=== PATIENT | male | born 1980 | race Hispanic/Latino ===

== ENCOUNTER → 2024-02-03 11:32 | Outpatient (REF) | payer OTHER, SELFPAY ==
[2024-02-03 12:29] LABS: ALT (SGPT) 122 U/L (0-50); AST (SGOT) 65 U/L (17-59); Albumin 4.2 g/dl (3.5-5.0); Alkaline Phosphatase 99 U/L (38-126); Direct Bilirubin 0.1 mg/dl (0.0-0.4); Total Bilirubin 0.7 mg/dl (0.2-1.3)
== END ==
LOC: REG 11:32
PROVIDERS: ATTENDING PHYSICIAN Podiatrist Foot & Ankle Surgery
DX: B35.1 Tinea unguium (principal)
CPT/HCPCS: 36415; 80076

== ENCOUNTER → 2024-04-23 07:58 | Outpatient (REF) | payer OTHER, SELFPAY ==
[2024-04-23 09:57] LABS: Hematocrit 39.7 % (39.0-52.0); Hemoglobin 13.5 g/dL (13.0-18.0); Mean Corpuscular Hgb 28.7 pg (27.0-31.0); Mean Corpuscular Volume 84.3 fL (80.0-94.0); Mean Platelet Volume 10.9 fL (7.4-10.4); Platelet Count 200 10^3/uL (130-400); Red Blood Cell Count 4.71 10^6/uL (4.70-6.10); Red Cell Dist. Width 12.9 % (11.5-14.5); White Blood Cell Count 5.8 10^3/uL (4.8-10.8)
[2024-04-23 10:33] LABS: ALT (SGPT) 163 U/L (0-50); AST (SGOT) 83 U/L (17-59); Albumin 4.5 g/dl (3.5-5.0); Alkaline Phosphatase 82 U/L (38-126); Blood Urea Nitrogen 19 mg/dl (9-20); Calcium 9.4 mg/dl (8.4-10.2); Carbon Dioxide 25 mmol/L (22-30); Chloride 108 mmol/L (98-107); Glucose 117 mg/dl (70-99); HDL Cholesterol 41 mg/dl; LDL Cholesterol, Calculated 103 mg/dl; Sodium 144 mmol/L (135-145); Total Bilirubin 0.7 mg/dl (0.2-1.3); Total Cholesterol 167 mg/dl (50-199); Total Protein 7.2 g/dl (6.3-8.2); Triglyceride 117 mg/dl (10-149); Uric Acid 5.8 mg/dl (3.5-8.5); Very Low Density Lipoprotein 23 mg/dl (0-30); eGFR > 60.00
[2024-04-23 11:06] LABS: TSH Reflex To Free T4 1.36 uIU/ml (0.47-4.68)
[2024-04-23 12:11] LABS: Glycohemoglobin (HgbA1c) 6.2 % (4.0-5.6)
== END ==
LOC: CLINIC 07:58
PROVIDERS: ATTENDING PHYSICIAN Nurse Practitioner Adult Health
DX: Z00.00 Encounter for general adult medical examination without abnormal findings (principal); M1A.9XX0 Chronic gout, unspecified, without tophus (tophi); R73.03 Prediabetes
CPT/HCPCS: 36415; 80053; 80061; 83036; 84443; 84550; 85027

== ENCOUNTER → 2024-07-22 08:31 | Outpatient (REF) | payer OTHER, SELFPAY ==
[2024-07-22 10:05] LABS: ALT (SGPT) 94 U/L (0-50); AST (SGOT) 56 U/L (17-59); Albumin 4.4 g/dl (3.5-5.0); Alkaline Phosphatase 80 U/L (38-126); Blood Urea Nitrogen 15 mg/dl (9-20); Calcium 9.8 mg/dl (8.4-10.2); Carbon Dioxide 25 mmol/L (22-30); Chloride 107 mmol/L (98-107); Glucose 113 mg/dl (70-99); Potassium 4.3 mmol/L (3.5-5.1); Sodium 142 mmol/L (135-145); Total Bilirubin 1.1 mg/dl (0.2-1.3); Total Protein 6.9 g/dl (6.3-8.2); Uric Acid 6.4 mg/dl (3.5-8.5); eGFR > 60.00
== END ==
LOC: REG 08:31
PROVIDERS: ATTENDING PHYSICIAN Nurse Practitioner Adult Health
DX: M1A.9XX0 Chronic gout, unspecified, without tophus (tophi) (principal); R73.03 Prediabetes; K76.0 Fatty (change of) liver, not elsewhere classified
CPT/HCPCS: 36415; 80053; 83036; 84550

== ENCOUNTER → 2024-11-18 08:05 | Outpatient (REF) | payer OTHER, SELFPAY ==
[2024-11-18 10:00] LABS: ALT (SGPT) 45 U/L (0-50); AST (SGOT) 35 U/L (17-59); Albumin 4.6 g/dl (3.5-5.0); Alkaline Phosphatase 62 U/L (38-126); Blood Urea Nitrogen 12 mg/dl (9-20); Calcium 9.3 mg/dl (8.4-10.2); Carbon Dioxide 27 mmol/L (22-30); Chloride 104 mmol/L (98-107); Glucose 102 mg/dl (70-99); Potassium 3.9 mmol/L (3.5-5.1); Sodium 141 mmol/L (135-145); Total Bilirubin 0.9 mg/dl (0.2-1.3); Total Protein 7.4 g/dl (6.3-8.2); eGFR > 60.00
[2024-11-18 11:28] LABS: Glycohemoglobin (HgbA1c) 5.6 % (4.0-5.6)
== END ==
LOC: CLINIC 08:05
PROVIDERS: ATTENDING PHYSICIAN Nurse Practitioner Adult Health
DX: R73.03 Prediabetes (principal); K76.0 Fatty (change of) liver, not elsewhere classified
CPT/HCPCS: 36415; 80053; 83036

== ENCOUNTER → 2025-01-20 07:12 | Outpatient (REF) | payer OTHER, SELFPAY ==
[2025-01-20 08:59] LABS: ALT (SGPT) 36 U/L (0-50); AST (SGOT) 26 U/L (17-59); Albumin 4.2 g/dl (3.5-5.0); Alkaline Phosphatase 71 U/L (38-126); Blood Urea Nitrogen 17 mg/dl (9-20); Calcium 9.4 mg/dl (8.4-10.2); Carbon Dioxide 24 mmol/L (22-30); Chloride 106 mmol/L (98-107); Glucose 94 mg/dl (70-99); Potassium 3.9 mmol/L (3.5-5.1); Sodium 140 mmol/L (135-145); Total Bilirubin 0.7 mg/dl (0.2-1.3); Total Protein 6.8 g/dl (6.3-8.2); eGFR > 60.00
[2025-01-20 09:50] LABS: Glycohemoglobin (HgbA1c) 5.7 % (4.0-5.6)
== END ==
LOC: CLINIC 07:12
PROVIDERS: ATTENDING PHYSICIAN Nurse Practitioner Adult Health
DX: I10 Essential (primary) hypertension (principal); K76.0 Fatty (change of) liver, not elsewhere classified; R73.03 Prediabetes; M1A.9XX0 Chronic gout, unspecified, without tophus (tophi)
CPT/HCPCS: 36415; 80053; 83036; 84550

== ENCOUNTER → 2025-04-21 08:07 | Outpatient (REF) | payer OTHER, SELFPAY ==
[2025-04-21 09:49] LABS: Uric Acid 6.5 mg/dl (3.5-8.5)
[2025-04-21 10:44] LABS: Glycohemoglobin (HgbA1c) 5.6 % (4.0-5.6)
== END ==
LOC: CLINIC 08:07
PROVIDERS: ATTENDING PHYSICIAN Nurse Practitioner Adult Health
DX: M1A.9XX0 Chronic gout, unspecified, without tophus (tophi) (principal); R73.03 Prediabetes
CPT/HCPCS: 36415; 83036; 84550

== ENCOUNTER → 2025-08-25 07:15 | Outpatient (REF) | payer OTHER, SELFPAY ==
[2025-08-25 08:18] LABS: Hematocrit 41.8 % (39.0-52.0); Hemoglobin 14.3 g/dL (13.0-18.0); Mean Corp Hgb Conc. 34.2 g/dL (33.0-37.0); Mean Corpuscular Volume 82.6 fL (80.0-94.0); Platelet Count 207 10^3/uL (130-400); Red Cell Dist. Width 12.6 % (11.5-14.5)
[2025-08-25 08:53] LABS: ALT (SGPT) 43 U/L (0-50); AST (SGOT) 25 U/L (17-59); Albumin 4.8 g/dl (3.5-5.0); Alkaline Phosphatase 68 U/L (38-126); Blood Urea Nitrogen 22 mg/dl (9-20); Calcium 9.4 mg/dl (8.4-10.2); Carbon Dioxide 25 mmol/L (22-30); Chloride 110 mmol/L (98-107); Glucose 124 mg/dl (70-99); HDL Cholesterol 47 mg/dl; LDL Cholesterol, Calculated 87 mg/dl; Potassium 4.5 mmol/L (3.5-5.1); Sodium 143 mmol/L (135-145); Total Protein 7.6 g/dl (6.3-8.2); Very Low Density Lipoprotein 23 mg/dl (0-30); eGFR > 60.00
== END ==
LOC: CLINIC 07:15
PROVIDERS: ATTENDING PHYSICIAN Nurse Practitioner Adult Health
DX: I10 Essential (primary) hypertension (principal); R73.03 Prediabetes; K76.0 Fatty (change of) liver, not elsewhere classified
CPT/HCPCS: 36415; 80053; 80061; 85027